=== PATIENT | female | born 1935 | race Caucasian/White ===

== ENCOUNTER 2017-03-21 17:46 | Inpatient (IN) | payer OTHER ==
--- NOTE | ~2017-03-21 | EKG ---
PATIENT: JACEK IRVIN UNIT #: [id number] Ventricular Rate: 60 BPM Atrial Rate: 60 BPM P-R Interval: 302 ms QRS Duration: 114 ms Q-T Interval: 436 ms QTC Calculation(Bezet): 436 ms Calculated R Jo[place]: 18 degrees Calculated T [place]: 55 degrees Diagnosis Line: AV dual-paced rhythm with prolonged AV conduction Diagnosis Line: Abnormal ECG Diagnosis Line: No previous ECGs available Diagnosis Line: Confirmed by CHARLI COVINGTON MD ([id number]) on 03/23/2017 Diagnosis Line: 10:32:05 AM INTERPRETING MD: ADRIA DARLING
--- NOTE | ~2017-03-21 | HP ---
Unit #: [id number] #: [id number] Patient: JACEK IRVIN [id number] [address] [place], [place] [address] [id number] I MR#: [id number] NAME: JACEK IRVIN. ROOM: 46904 Age: 81 Sex: F Admission Date: 03/21/2017 : 1935 Attending Physician: Elsa Morrison M.D. Primary Care Physician: No Primary Care Physician HISTORY AND PHYSICAL CHIEF COMPLAINT Vertigo. HISTORY This very pleasant 81-year-old female with CAD, status post permanent pacemaker insertion, peptic ulcer disease, COPD, chronic pain, is admitted for vertigo. Patient states that she has felt unwell for the past few days. Was unable to sleep last evening. Today someone called her on the phone, she got up, experienced new onset vertigo, which occurred twice with movement. Then experienced nausea and vomiting and upper abdominal discomfort similar to her previous ulcer. She was brought to this emergency department late last evening with an initial blood pressure of 173/53. Her O2 sats do drop when she ambulates. In the course of her evaluation white blood count is low at 2.5. BNP modestly elevated. Chest x-ray is read as borderline to mild pulmonary vascular congestion. In the ER, patient was given Zofran. When she moves she does experience vertigo and has to hold onto the bedrail. Head CT shows no acute disease. PAST MEDICAL HISTORY 1. CAD, status post PCI and stent x2 and permanent pacemaker with history of possible paroxysmal atrial fibrillation. 2. Peptic ulcer disease. 3. COPD. 4. GERD and IBS. 5. B12 deficiency. 6. Hypothyroidism. 7. Hyperlipidemia. 8. Depression. 9. Peripheral neuropathy. 10. Chronic pain. 11. Gastric bypass. 12. Rhinoplasty and breast reduction surgery. 13. Total abdominal hysterectomy. 14. Cataract extraction. 15. Appendectomy. 16. Cholecystectomy. 17. Bilateral total knee replacements. 18. Hemorrhoidectomy. ALLERGIES Codeine, Thorazine and Solu-Medrol. Unit #: [id number] #: [id number] Patient: JACEK IRVIN HOME MEDICATIONS Synthroid 0.025 mg daily; B12 1,000 mcg each month, Cymbalta 60 mg daily; Imdur 30 mg daily; Lipitor 40 mg daily; metoprolol 50 mg daily; Lasix 20 mg daily; potassium 20 mEq daily; Prevacid 30 mg b.i.d., which the patient ran out of about three days ago; HyoMax 0.375 mg b.i.d.; Lexapro; Advair 250/50 one puff b.i.d.; Combivent; fentanyl patch 25 mcg every 72 hours; [place] 5/325 q.4 hours as needed; Flonase nasal spray. FAMILY HISTORY COPD and CHF. SOCIAL HISTORY The patient lives with her daughter and extended family. She is a lifelong nonsmoker does not drink alcohol. REVIEW OF SYSTEMS Notable for vertigo, CAD, permanent pacemaker, peptic ulcer disease, COPD, IBS, GERD, B12 deficiency, hypothyroidism, hyperlipidemia, depression, chronic pain, neuropathy, and above mentioned surgeries. All other systems were reviewed and otherwise negative. PHYSICAL EXAMINATION GENERAL: Pleasant 81-year-old female currently in no acute distress. VITAL SIGNS: Temperature 97.5, pulse 60, respirations 16. Initial blood pressure 173/53, O2 saturation 100% on 2 L of oxygen. HEENT: Eyes - PERRLA. Extraocular muscles are intact. TMs are clear. Pharynx is benign. NECK: Supple without adenopathy or thyromegaly. CHEST: Clear. CARDIAC: Normal S1 and S2 with a soft systolic murmur throughout, and possibly a diastolic murmur as well. ABDOMEN: Bowel sounds are present. No hepatosplenomegaly, tenderness, or masses. EXTREMITIES: Without edema. Pedal pulses are present. No ulcers on the feet. NEUROLOGIC: Patient is awake, alert, and oriented. Cranial nerves are intact. Her speech is fluent. She has +5/5 strength throughout. Normal guuqqz-gz-wjgc and normal idob-bt-reqo. She needs assistance to walk however. DIAGNOSTIC STUDIES ADMISSION LABS: Hematocrit is 33, white blood count 2.5, platelet count 123. Cardiac markers are negative. SMA 12 - BUN 24, albumin 3.1. BNP is 721. IMAGING STUDIES: Head CT - no acute disease. Chest x-ray shows borderline to mild congestive heart failure. CARDIOLOGY STUDIES: EKG - paced rhythm, rate 60. ASSESSMENT 1. Vertigo likely peripheral. Works with movement of the head. 2. CAD, status post PCI and stent placement, along with permanent pacemaker with possible borderline congestive heart failure. 3. COPD and decreased O2 when walking. 4. Hypertension. 5. Peripheral neuropathy. Unit #: [id number] #: [id number] Patient: JACEK IRVIN 6. Chronic pain. 7. Peptic ulcer disease. 8. B12 deficiency. 9. Mild neutropenia. PLANS 1. Antivert and Zofran. If not improving will ask neurology to see. 2. Repeat labs in the morning. 3. Obtain echo and obtain a PA and lateral chest x-ray. 4. SCDs for DVT prophylaxis. 5. Old records. 6. Further plans depending on above. Dictated by Elsa Morrison M.D. AML/ts TD: 03/22/2017 05:00 JOB #: [id number] CC: Dr. Snyder HISTORY AND PHYSICAL Page 1 of 1 X Elsa Morrison MD X HISTORY AND PHYSICAL
--- NOTE | ~2017-03-21 | CT71 ---
[facility] A Service [facility] RADIOLOGY TEXT RESULTS PATIENT: JACEK IRVIN LOCATION: [facility] : 35 UNIT #: [id number] AGE: [address]: Nehemias Stuart DO SEX: F ORDER DR: [id number] [facility] [address] [place], [place] [address] [id number] E MR#: [id number] Acc #: [id number] NAME: JACEK IRVIN : 1935 SEX: F STUDY DATE/TIME: 03/21/2017 19:56 UNIT: [facility] ROOM: STUDY DESCRIPTION: CT Head Wo Contrast Attending Physician: Nehemias Stuart D.O. Ordering Physician: Nehemias Stuart D.O. Primary Care Physician: No Primary Care Physician MEDICAL IMAGING REPORT This report is preliminary unless electronic signature is present EXAM Head CT without contrast. HISTORY Dizziness, worse with movement. Onset this morning. TECHNIQUE Axial images were obtained without contrast. This CT exam was performed with one or more of the following radiation dose reduction techniques: automatic exposure control, adjustment of mA and/or kV according to patient size, and iterative reconstruction. FINDINGS Axial noncontrast images were obtained from the skull base to the vertex. Ventricular size and configuration are normal. There is no evidence of acute infarct or hemorrhage. There are no extra-axial fluid collections. No mass lesion or mass effect is seen. There are no skull fractures. IMPRESSION Normal noncontrast head CT. Dictated by... Ayan Parker M.D. THIS IS AN ELECTRONICALLY VERIFIED REPORT Ayan Parker M.D. at 03/21/2017 10:18 PM SAULF/wendy TD: 03/21/2017 21:10 [facility] A Service [facility] RADIOLOGY TEXT RESULTS PATIENT: JACEK IRVIN LOCATION: [facility] : 35 UNIT #: [id number] AGE: [address]: Nehemias Stuart DO SEX: F ORDER DR: JOB #: [id number] MEDICAL IMAGING REPORT Page 1 of 1 COPY
--- NOTE | ~2017-03-21 | CR63 ---
[facility] A Service of [facility] RADIOLOGY TEXT RESULTS PATIENT: JACEK IRVIN LOCATION: [facility] [id number] : 35 UNIT #: [id number] AGE: [address]: Kenna Clarke MD SEX: F ORDER DR: [id number] [facility] [address] [place], [place] [address] [id number] I MR#: [id number] Acc #: [id number] NAME: JACEK IRVIN : 1935 SEX: F STUDY DATE/TIME: 03/22/2017 7:21 UNIT: [facility] ROOM: [facility] STUDY DESCRIPTION: CR Chest 2 View Attending Physician: Kenna Clarke M.D. Ordering Physician: Elsa Morrison M.D. Primary Care Physician: Primary Care Physician No MEDICAL IMAGING REPORT This report is preliminary unless electronic signature is present EXAM PA and lateral chest DATE OF EXAMINATION: 03/22 COMPARISON: 03/21/2017 HISTORY Shortness of breath, syncopal episode and dizziness for 1 day. FINDINGS An AP portable view is obtained. The cardiac size is stable. Vascular markings remain normal. Lungs are clear with no acute infiltrates. Transvenous pacing device remains in place. CONCLUSION 1. No interim change. Dictated by... Jovi Sebastian M.D. THIS IS AN ELECTRONICALLY VERIFIED REPORT Jovi Sebastian M.D. at 03/23/2017 7:25 AM INDER/mau TD: 03/22/2017 07:59 JOB #: [id number] MEDICAL IMAGING REPORT Page 1 of 1 COPY
--- NOTE | ~2017-03-21 | CR72 ---
[facility] A Service of [facility] RADIOLOGY TEXT RESULTS PATIENT: JACEK IRVIN LOCATION: [facility] : 35 UNIT #: [id number] AGE: [address]: Nehemias Stuart DO SEX: F ORDER DR: [id number] [facility] [address] [place], [place] [address] [id number] E MR#: [id number] Acc #: [id number] NAME: JACEK IRVIN : 1935 SEX: F STUDY DATE/TIME: 03/21/2017 19:19 UNIT: [facility] ROOM: STUDY DESCRIPTION: CR Chest Single View Portable Attending Physician: Nehemias Stuart D.O. Ordering Physician: Nehemias Stuart D.O. MEDICAL IMAGING REPORT This report is preliminary unless electronic signature is present EXAM Portable chest HISTORY Shortness of breath, worse with activity, accompanied by dizziness and syncope beginning earlier today. TECHNIQUE Single AP view of the chest was obtained and compared with 02/18/2013. FINDINGS Pacemaker leads are satisfactory. Cardiomegaly is unchanged and the aorta is tortuous. Both lungs are clear with no focal infiltrates. Vascular markings are mildly prominent. No pleural fluid is seen. IMPRESSION Mmwsyfwzes-xq-aylm pulmonary vascular congestion, new since the previous exam. Cardiomegaly. Findings suggest ibzktujfly-tb-gaiy congestive heart failure. No focal infiltrates are seen. Dictated by... Ayan Parker M.D. THIS IS AN ELECTRONICALLY VERIFIED REPORT Ayan Parker M.D. at 03/21/2017 10:18 PM RLF/lorraine TD: 03/21/2017 20:56 JOB #: [id number] MEDICAL IMAGING REPORT Page 1 of 1 COPY
--- NOTE | ~2017-03-21 | DS ---
Unit #: [id number] #: [id number] Patient: JACEK BOLAND [id number] [address] [address] [id number] I MR#: [id number] NAME: JACEK BOLAND. ROOM: 569 Age: 81 Sex: F Admission Date: 03/22/2017 : 1935 Discharge Date: 03/23/2017 Attending Physician: Kenna Clarke M.D. Primary Care Physician: No Primary Care Physician DISCHARGE SUMMARY PRINCIPAL DIAGNOSES 1. Benign paroxysmal positional vertigo, significantly improved. 2. Pancytopenia. 3. Kfzwi-cx-hihirky diastolic congestive heart failure with an ejection fraction of 50%-55%. 4. Chronic obstructive pulmonary disease. 5. Coronary artery disease. 6. Chronic pain syndrome, maintained on narcotics. 7. Fibromyalgia. 8. Hypothyroidism. 9. Hyperlipidemia. 10. Depression. 11. Gastroesophageal reflux disease. 12. History of vitamin B12 deficiency. 13. History of paroxysmal atrial fibrillation, status post permanent pacemaker placement. 14. Irritable bowel syndrome. 15. Peripheral neuropathy. 16. History of gastric bypass. 17. Moderate aortic regurgitation. CONSULTANTS None. PROCEDURES PERFORMED Two-dimensional echocardiogram, revealing an ejection fraction of 50%-55%. Grade 1 diastolic dysfunction noted. Sclerotic trileaflet aortic valve with moderate aortic regurgitation noted. DIAGNOSTIC DATA IMAGING: CT of the head without contrast on 03/21/2017 which was normal. Chest x-ray on 03/21/2017 with pulmonary vascular congestion. CLINICAL HISTORY/HOSPITAL COURSE Ms. Boland is an 81-year-old female who presents to the emergency department with dizziness and associated nausea and vomiting. Please refer to history and physical for further details. CT scan of the head without contrast was done and did not reveal any acute findings. The patient, however, is said to be pancytopenic and also had an elevated BNP of greater than 700. She was subsequently admitted. In regard to the patient's dizziness, This appeared to be BPPV by history and on exam. She was seen by physical therapy and occupational therapy in Unit #: [id number] #: [id number] Patient: JACEK BOLAND addition to being treated with meclizine and Zofran. Today her dizziness is significantly improved and I think she can safely be discharged home with plans for outpatient vestibular therapy. In regard to the patient's elevated BNP, she was given a single additional dose of Lasix and she seems improved. I will admit she had minimal to no crackles on exam and I think she can continue Lasix as an outpatient. In regard to the patient's pancytopenia, it is unknown to me whether this is acute and/or chronic. I did discuss with her evaluation by blood specialist here versus as outpatient and she wished to have workup as an outpatient. The patient will be discharged home today. DISCHARGE CONDITION Stable. DISPOSITION Discharge to home. DISCHARGE MEDICATIONS 1. Zofran 4 mg p.o. q.6 h. p.r.n. nausea/vomiting. 2. Meclizine 25 mg 0.5-1 tablet p.o. t.i.d. p.r.n. dizziness. Number given 20. 3. Combivent nebulizer solution 3 ml q.4 h. p.r.n. shortness of breath. 4. Advair 250/50 one puff b.i.d. 5. Flonase 0.05% nasal spray, 1 spray per nostril b.i.d. 6. Eliquis 2.5 mg b.i.d. 7. Cymbalta 60 mg daily. 8. Lexapro at home dose daily. 9. Hyoscyamine 0.375 mg 2 tablets daily. 10. Metoprolol succinate 50 mg daily. 11. Lasix 20 mg daily. 12. Lipitor 40 mg daily. 13. Fentanyl 25 mcg q.72 h. 14. [place] 5/500 mg 1 tablet q.4 h. p.r.n. pain. 15. Prevacid 50 mg daily. 16. Potassium chloride 20 mEq p.o. daily. 17. Levothyroxine 25 mcg daily. 18. Imdur ER 30 mg daily. 19. Vitamin B12 injections monthly. DIET The patient was instructed to follow a regular diet. ACTIVITY She can increase her activity as tolerated. FOLLOWUP The patient will follow up with her primary care physician, Dr. Carmelita Strauss, in two weeks. Dictated by... Kenna Clarke M.D. Unit #: [id number] #: [id number] Patient: JACEK BOLAND KEH/gz TD: 03/23/2017 09:50 JOB #: [id number] CC: Carmelita Strauss M.D. DISCHARGE SUMMARY Page 1 of 1 X Kenna Clarke MD X DISCHARGE SUMMARY
[2017-03-21 19:32] LABS: BASOPHIL% 0.9 % (0-2.5); EOSINOPHIL# 0.1 X10e3 (0-0.7); EOSINOPHIL% 3.2 % (0.0-7.0); HEMOGLOBIN 10.7 gm/dL (12.0-16.0); LYMPHOCYTE# 0.9 X10e3 (1.0-3.5); LYMPHOCYTE% 35.3 % (17.0-45.0); MEAN CELL VOLUME 93.2 FL (83-96); MEAN CORPUSCULAR HEMOGLOBIN 30.2 PG (28-34); MEAN CORPUSCULAR HGB CONC 32.4 g/dL (30-36); MEAN PLATELET VOLUME 8.7 FL (6.5-11.5); MONOCYTE# 0.3 X10e3 (0-1.0); MONOCYTE% 11.5 % (3.0-12.0); NEUTROPHIL# 1.2 X10e3 (1.5-7.1); NEUTROPHIL% 49.1 % (40-75); PLATELET COUNT 123 X10e3 (140-420); RED BLOOD COUNT 3.54 X10e (3.90-5.30); RED CELL DISTRIBUTION WIDTH 15.7 % (11.0-15.5); WHITE BLOOD COUNT 2.5 X10e3 (4.0-10.5)
[2017-03-21 19:34] LABS: DIFF IND YES
[2017-03-21 19:45] LABS: ALBUMIN SERUM 3.1 g/dL (3.5-5.0); BILIRUBIN, DIRECT 0.1 mg/dL (0.0-0.2); BILIRUBIN,INDIRECT 0.8 mg/dL (0.0-0.9); BILIRUBIN,TOTAL 0.9 mg/dL (0.2-2.0); CALCIUM SERUM 8.5 mg/dL (8.4-10.2); CREATININE SERUM 0.8 mg/dL (0.6-1.4); GLOM FILT RATE Estimated 69.2 mL/min (>60); POTASSIUM 3.8 mmol/L (3.5-5.1)
[2017-03-21 20:32] LABS: PLATELET ESTIMATE DECREASED (NORMAL)
[2017-03-21 20:33] LABS: ANISOCYTOSIS MOD; POIKILOCYTOSIS SL
[2017-03-21] MEDS ORDERED: SYNTHROID25 MCG PO (22:12)
[2017-03-21] MEDS ORDERED: DULOXETINE HCL60 MG PO (22:13)
[2017-03-21] MEDS ORDERED: CYANOCOBAL1000 MCG/M INJ (22:13)
[2017-03-21] MEDS ORDERED: IMDUR-ER30 MG PO (22:14)
[2017-03-21] MEDS ORDERED: METOPROLOL SUCC50 MG PO (22:14)
[2017-03-21] MEDS ORDERED: LIPITOR40 MG PO (22:14)
[2017-03-21] MEDS ORDERED: PREVACID PO (22:15)
[2017-03-21] MEDS ORDERED: POTASSIUM CHLO20 ME1 PO (22:15)
[2017-03-21] MEDS ORDERED: LASIX20 MG PO (22:15)
[2017-03-21] MEDS ORDERED: HYOMAX0.125 MG PO (22:16)
[2017-03-21] MEDS ORDERED: LEXAPRO (22:19)
[2017-03-21] MEDS ORDERED: ADVAIR 250-501 EACH INH (22:19)
[2017-03-21] MEDS ORDERED: COMBIVENT U/D3 M2 INH (22:20)
[2017-03-21] MEDS ORDERED: FENTANYL1 EAC3 TOP (22:21)
[2017-03-21] MEDS ORDERED: FLONASE 0.05% N16 GM (22:23)
[2017-03-21] MEDS ORDERED: HYDROCODON-ACE1 EAC7 PO (22:23)
[2017-03-21 22:24] LABS: POC - CKMB 1.2 ng/mL (0.0-7.9); POC - TROPONIN <0.05 ng/mL (<=0.05)
[2017-03-22 00:38] LABS: URINE SOURCE CLEAN CATCH
[2017-03-22 00:44] LABS: URINE APPEARANCE CLEAR; URINE BILIRUBIN NEG (NEG); URINE BLOOD NEG (NEG); URINE COLOR YELLOW; URINE GLUCOSE NEG (NEG); URINE KETONE NEG (NEG); URINE LEUKOCYTE ESTERASE TRACE (NEG); URINE NITRATE NEG (NEG); URINE PROTEIN NEG (NEG); URINE SPECIFIC GRAVITY 1.006 (1.003-1.035)
[2017-03-22 00:47] LABS: URBCS1 AUWI 0-2 /[HPF] (0-2); URINE BACTERIA AUWI NEG (NEGATIVE); URINE SQUAMOUS EPITHELIAL CELL NONE SEEN /[HPF]; UWBCS1 AUWI 0-2 (0-5)
[2017-03-22 00:52] LABS: CULTURE INDICATED? NO
[2017-03-22 05:36] LABS: BUN/CREATININE RATIO 25.71; CALCIUM SERUM 8.6 mg/dL (8.4-10.2); CREATININE SERUM 0.7 mg/dL (0.6-1.4); GLOM FILT RATE Estimated 81.3 mL/min (>60); POTASSIUM 3.9 mmol/L (3.5-5.1)
[2017-03-22 05:55] LABS: MB 1.8 ng/ml
[2017-03-22 06:22] LABS: BASOPHIL% 0.8 % (0-2.5); EOSINOPHIL# 0.1 X10e3 (0-0.7); EOSINOPHIL% 1.8 % (0.0-7.0); HEMATOCRIT 32.5 % (35.0-45.0); HEMOGLOBIN 10.7 gm/dL (12.0-16.0); LYMPHOCYTE# 1.1 X10e3 (1.0-3.5); MEAN CELL VOLUME 92.5 FL (83-96); MEAN CORPUSCULAR HEMOGLOBIN 30.6 PG (28-34); MONOCYTE# 0.3 X10e3 (0-1.0); MONOCYTE% 11.1 % (3.0-12.0); NEUTROPHIL# 1.6 X10e3 (1.5-7.1); NEUTROPHIL% 51.3 % (40-75); PLATELET COUNT 116 X10e3 (140-420); RED BLOOD COUNT 3.51 X10e (3.90-5.30); RED CELL DISTRIBUTION WIDTH 15.3 % (11.0-15.5); WHITE BLOOD COUNT 3.1 X10e3 (4.0-10.5)
[2017-03-22 06:27] LABS: DIFF IND NO
[2017-03-23 05:25] LABS: HEMATOCRIT 32.7 % (35.0-45.0); HEMOGLOBIN 10.6 gm/dL (12.0-16.0); MEAN CELL VOLUME 92.8 FL (83-96); MEAN CORPUSCULAR HEMOGLOBIN 30.2 PG (28-34); MEAN CORPUSCULAR HGB CONC 32.5 g/dL (30-36); MEAN PLATELET VOLUME 8.7 FL (6.5-11.5); RED BLOOD COUNT 3.52 X10e (3.90-5.30); RED CELL DISTRIBUTION WIDTH 15.7 % (11.0-15.5); WHITE BLOOD COUNT 3.5 X10e3 (4.0-10.5)
[2017-03-23 07:06] LABS: BUN/CREATININE RATIO 25.55; CALCIUM SERUM 8.3 mg/dL (8.4-10.2); CREATININE SERUM 0.9 mg/dL (0.6-1.4); POTASSIUM 3.6 mmol/L (3.5-5.1)
[2017-03-23] MEDS ORDERED: MECLIZINE HCL25 M2 PO (09:47)
[2017-03-23] MEDS ORDERED: ZOFRAN PO (09:48)
[2017-03-23] MEDS ORDERED: ELIQUIS2.5 MG PO (09:48)
== END 2017-03-23 14:39 | disposition home health service (06) | DRG 808 ==
LOC: CED 17:46 → CEDOF 23:56 → CED 23:56 → CEDOF 03-22 00:40 → C5C 03-22 00:40 → CED 03-22 00:40 → CEDOF 03-22 00:40 → C5C 03-22 07:53
PROVIDERS: Emergency Medicine; Internal Medicine
PROC: B24BYZZ Ultrasonography of Heart with Aorta using Other Contrast (ICD-10-PCS; principal; 2017-03-22)
DX: D61.818 Other pancytopenia (principal); I50.33 Acute on chronic diastolic (congestive) heart failure; G62.9 Polyneuropathy, unspecified; J44.9 Chronic obstructive pulmonary disease, unspecified; H81.10 Benign paroxysmal vertigo, unspecified ear; I25.10 Atherosclerotic heart disease of native coronary artery without angina pectoris; Z95.0 Presence of cardiac pacemaker; Z87.11 Personal history of peptic ulcer disease; K21.9 Gastro-esophageal reflux disease without esophagitis; K58.9 Irritable bowel syndrome, unspecified; E53.8 Deficiency of other specified B group vitamins; E03.9 Hypothyroidism, unspecified; E78.5 Hyperlipidemia, unspecified; F32.9 Major depressive disorder, single episode, unspecified; Z98.84 Bariatric surgery status; Z90.710 Acquired absence of both cervix and uterus; Z98.49 Cataract extraction status, unspecified eye; Z96.653 Presence of artificial knee joint, bilateral; G89.4 Chronic pain syndrome; M79.7 Fibromyalgia; I35.1 Nonrheumatic aortic (valve) insufficiency
CPT/HCPCS: 70450; 71010; 71020; 80048; 80076; 81003; 82550; 82553; 82607; 82947; 83880; 84443; 84484; 85025; 85027; 93005; 93306; 94760; 96361; 96374; 97163; 97165; 99285; G8978-GP; G8979-GP; G8987-GO; G8988-GO; G8989-GO; J1940; J2405